=== PATIENT | female | born 1965 | race Caucasian/White ===

== ENCOUNTER 2016-06-16 10:42 | Day surgery (SDC) | payer OTHER ==
[~2016-06-16 10:42] MED LIST: ACETAMINOPHEN 1000MG/100 ML PREMIX IV ONE; FAMOTIDINE 20MG TABLET PO ONE; MECLIZINE 25 MG TABLET PO ONE; METOCLOPRAMIDE 10 MG TABLET PO ONE
[2016-06-16] MEDS ORDERED: BUPIVACAINE 0.25% W/EPI MPF 30ML VIAL IVP ONE (14:00)
[2016-06-16] MEDS ORDERED: BETAMETHASONE 6 MG/1 ML 5ML VIAL IM ONE (14:00)
[2016-06-16] MEDS ORDERED: LIDOCAINE 2% MDV (20MG/ML) 20ML VIAL IV ONE (14:32)
[2016-06-16] MEDS ORDERED: PROPOFOL 10 MG/ML VIAL IV ONE (14:32)
--- NOTE | 2016-06-17 15:49 | Operative Note ---
DATE OF SURGERY: 06/16/16 SURGEON: KARAN CASSIDY D.O. REFERRING PHYSICIAN: REBEKAH PEDRAZA D.O. PREOPERATIVE DIAGNOSIS: CONTRACTURE OF THE LEFT SHOULDER. POSTOPERATIVE DIAGNOSIS: CONTRACTURE OF THE LEFT SHOULDER. OPERATIVE PROCEDURE: 1. MANIPULATION UNDER ANESTHESIA, LEFT SHOULDER. 2. INJECTION, LEFT SHOULDER. DESCRIPTION: This 51-year-old female was taken to the Operating Room and placed in the supine position on the operating room table where general anesthesia was induced. The left shoulder was taken through a range of motion and found to be restrictive about 80 degrees of abduction, 150 degrees of forward flexion, external rotation was at about 45 degrees, internal rotation to approximately 60 degrees. This shoulder was then gently manipulated throughout range of motion stabilizing the glenohumeral joint to 120 degrees of abduction, 180 degrees of forward flexion, external rotation to 90 degrees, internal rotation to 90 degrees as well and full crossover. The anterior aspect of the shoulder was then prepped and a 22-gauge spinal needle was easily advanced into the glenohumeral joint and 4 mL of 0.25% Marcaine with Epinephrine and 2 mL of Celestone Soluspan were injected without difficulty. The patient was then awakened and taken to the Recovery Room in satisfactory condition. GROSS PATHOLOGY: This patient demonstrated stiffening of the joint capsule as a result of previous rotator cuff repair and manipulation was accomplished to disrupt the cicatrix, which had formed in the joint capsule as a result. Karan Cassidy D.O. Date & Time cc: Rebekah Pedraza D.O. JOB NUMBER: [id number] MTDD
== END 2016-06-16 12:41 | disposition home or self-care (01) ==
LOC: SUR 10:42
PROVIDERS: ATTEND Orthopaedic Surgery
DX: M75.02 Adhesive capsulitis of left shoulder (principal); E78.00 Pure hypercholesterolemia, unspecified; E03.9 Hypothyroidism, unspecified; I10 Essential (primary) hypertension